=== PATIENT | male | born 1990 | race Caucasian/White ===

== ENCOUNTER 2022-06-02 05:02 | Emergency (ER) | payer BC ==
[2022-06-02] MEDS ORDERED: Ondansetron ODT 4 MG TAB ONE (05:11)
[2022-06-02] MEDS ORDERED: Morphine 4 MG/ML VIAL ONE ×2 (05:11→05:42)
[2022-06-02] MEDS ORDERED: Ondansetron PF 4 MG/2 ML Vial ONE (05:35)
[2022-06-02 05:42] LABS: #Basophils 0.1 thou/uL (0.0-0.2); #Eosinphils 0.4 thou/uL (0.0-0.7); #Monocytes 0.8 thou/uL (0.11-0.59); #Neutrophils 4.7 thou/uL (1.40-6.50); %Basophils 1.3 % (0.0-1.0); %Eosinophils 3.8 % (0.0-10.0); %Lymphocytes 45.2 % (21.0-51.0); %Monocytes 7.6 % (0.0-10.0); %Neutrophils 42.2 % (42.0-75.0); Hemoglobin 15.4 g/dL (14.0-18.0); Mean Corpuscular HGB CONC 32.6 g/dL (32.0-36.0); Mean Corpuscular Hemoglobin 29.4 pg (27.0-31.0); Mean Corpuscular Volume 90.3 fL (78.0-98.0); Mean Platelet Volume 11.8 fL (7.4-10.4); Platelet Count 258 thou/uL (130-400); RBC Distribution Width 12.4 % (11.5-14.5); Red Blood Cell (RBC) Count 5.24 mill/uL (4.70-6.10); White Blood Cell (WBC) Count 11.2 thou/uL (4.8-10.8)
[2022-06-02 06:02] LABS: ALT (SGPT) 96 U/L (8-55); AST (SGOT) 30 U/L (5-34); Albumin 4.2 g/dL (3.5-5.0); Alkaline Phosphatase 67 U/L (40-110); Anion Gap 16 mmol/L (10-20); BUN (Urea Nitrogen) 15 mg/dL (8.9-20.6); Bilirubin, Total 0.5 mg/dL (0.2-1.2); Calc. Creatinine Clearance 0 mL/min (70-130); Calcium 9.3 mg/dL (7.8-10.44); Carbon Dioxide 23 mmol/L (22-29); Chloride 108 mmol/L (98-107); Estimated GFR 87; Globulin 2.8 g/dL (2.4-3.5); Glucose 136 mg/dL (70-105); Lipase 12 U/L (8-78); Potassium 3.8 mmol/L (3.5-5.1); Sodium 143 mmol/L (136-145)
== END 2022-06-02 06:10 | disposition short-term general hospital (02) ==
LOC: MADERS 05:02
DX: N50.812 Left testicular pain (principal)
CPT/HCPCS: 80053; 83690; 83735; 85025; 96372; 96374; 96375; J2270; J2405; Q0162